=== PATIENT | male | born 1975 | race Two or more races ===

== ENCOUNTER 2017-12-25 01:53 | Emergency (ER) | payer MEDICAID ==
[~2017-12-25] VITALS: Ht 175.3 cm; Wt 142.9 kg
[2017-12-25 01:53] VITALS: BP 175/125
== END 2017-12-25 03:21 | disposition left against medical advice (07) ==
LOC: ER 01:53
DX: F41.9 Anxiety disorder, unspecified (principal); Z53.21 Procedure and treatment not carried out due to patient leaving prior to being seen by health care provider

== ENCOUNTER 2018-07-06 16:00 | Emergency (ER) | payer MEDICAID ==
[~2018-07-06] VITALS: Ht 175.3 cm; Wt 145.1 kg
[2018-07-06] MEDS ORDERED: SODIUM CHLORIDE 0.9% 1,000 ML IV ONE ×2 (16:19→17:00)
[2018-07-06] MEDS ORDERED: SODIUM CHLORIDE 0.9% 1,000 ML IVB ONE (16:19)
[2018-07-06 16:52] LABS: Basophils # (auto) 0 uL; Basophils % (auto) 0.5 % (0.0-2.0); Eosinophils # (auto) 0.2 uL; Eosinophils % (auto) 2.3 % (0.0-7.0); Hematocrit 48.8 % (41.0-53.0); Lymphocytes # (auto) 1.4 uL; Lymphocytes % (auto) 17.6 % (10.0-50.0); Mean Corpuscular Hemoglobin 29.1 pg (28.0-32.0); Mean Corpuscular Hgb Conc. 32.8 g/dL (32.0-36.0); Mean Corpuscular Volume 88.6 fL (80.0-100.0); Monocytes # (auto) 0.6 uL; Monocytes % (auto) 7.9 % (0.0-12.0); Neutrophils # (auto) 5.5 uL; Neutrophils % (auto) 71.7 % (37.0-80.0); Nucleated Red Blood Cells % 0.1 %; Platelet Count (auto) 249 10^3/uL (140-450); Red Blood Cells 5.51 10^6/uL (4.5-5.90); White Blood Cell 7.7 10^3/uL (4.4-10.8)
[2018-07-06] MEDS ORDERED: FUROSEMIDE 20 MG/2 ML VIAL IV ONE (17:00)
[2018-07-06] MEDS ORDERED: cefTRIAXone 1GM/50ML D5W 50 ML IV ONE (17:00)
[2018-07-06] MEDS ORDERED: SPIRONOLACTONE 25 MG TAB PO ONE (17:00)
[2018-07-06 17:09] LABS: Albumin 3.4 g/dL (3.4-5.0); Calcium 8.6 mg/dL (8.5-10.1); Potassium 3.9 mmol/L (3.5-5.1)
[2018-07-06 17:11] LABS: BUN/Creatinine Ratio 10.5
[2018-07-06 17:14] LABS: Bilirubin, Total 1.1 mg/dL (0.2-1.0); Total Protein 7.9 g/dL (6.4-8.2)
[2018-07-06 18:36] LABS: Urine Bacteria NONE SEEN /hpf (None Seen); Urine Blood 2+ /uL (Negative); Urine Mucus FEW (None Seen); Urine WBC <1 /hpf (0 - 3)
[2018-07-06 18:58] VITALS: BP 127/85
== END 2018-07-06 18:58 | disposition home or self-care (01) ==
LOC: ER 16:00
DX: J18.9 Pneumonia, unspecified organism (principal); E66.9 Obesity, unspecified; I87.8 Other specified disorders of veins; Z68.42 Body mass index [BMI] 45.0-49.9, adult
CPT/HCPCS: 36415; 71045; 80053; 81001; 83735; 83880; 84443; 85025; 87040; 87804; 93005; 94761; 96365; 96375; 99284; J0696; J1940; J7030

== ENCOUNTER 2019-09-06 01:00 | Inpatient (IN) | payer MEDICAID ==
[~2019-09-06] VITALS: Ht 172.7 cm; Wt 113.4 kg
[2019-09-06] MEDS ORDERED: ACETAMINOPHEN 325 MG TAB PO ONE (01:30)
[2019-09-06] MEDS ORDERED: ONDANSETRON HCL 4 MG/2 ML VIAL IV ONE ×2 (01:30→03:30)
[2019-09-06] MEDS ORDERED: DEXTROSE 10% 1,000 ML IV ONE ×2 (02:00→06:00)
[2019-09-06] MEDS ORDERED: DEXTROSE (50%) 50ML SYRG IV ONE ×5 (02:15→12:23)
[2019-09-06] MEDS ORDERED: DEXTROSE 50% SYRINGE 50 ML IV ONE ×2 (03:00→12:21)
[2019-09-06] MEDS ORDERED: SUCCINYLCHOLINE CHLORIDE 20 MG/ML 10ML VIAL IV ONE ×2 (03:10→03:15)
[2019-09-06] MEDS ORDERED: ETOMIDATE (2MG/ML) 20ML VIAL IV ONE ×2 (03:10→03:15)
[2019-09-06] MEDS ORDERED: PROPOFOL 100 ML IV ONE (03:11)
[2019-09-06] MEDS ORDERED: NOREPINEPHRINE 8 MG/250ML KIT 250 ML IV SCH (03:12)
[2019-09-06] MEDS ORDERED: ONDANSETRON HCL 4 MG/2 ML VIAL ONE (03:17)
[2019-09-06] MEDS ORDERED: MIDAZOLAM HCL 5 MG/ML-1ML VIAL ONE (03:20)
[2019-09-06] MEDS: PROPOFOL 100 ML IV SCH ×2 (03:27→09:00)
[2019-09-06] MEDS ORDERED: MIDAZOLAM HCL 5 MG/ML-1ML VIAL IV ONE (03:30)
[2019-09-06] MEDS ORDERED: VANCOMYCIN 1GM/250ML 250 ML IV ONE (03:45)
[2019-09-06] MEDS ORDERED: PIPERACILLIN-TAZOB 3.375GM 100 ML IV ONE (03:45)
[2019-09-06 03:59] LABS: Hematocrit 49.2 % (41.0-53.0); Hemoglobin 15.7 g/dL (13.5-17.5); Mean Corpuscular Hemoglobin 24.8 pg (28.0-32.0); Mean Corpuscular Volume 77.6 fL (80.0-100.0); Platelet Count (auto) 262 10^3/uL (140-450); Red Blood Cells 6.34 10^6/uL (4.5-5.90); White Blood Cell 14.6 10^3/uL (4.4-10.8)
[2019-09-06 04:06] LABS: Red Cell Distribution Width 20.1 % (11.8-14.3)
[2019-09-06 04:19] LABS: Albumin 2.9 g/dL (3.4-5.0); Calcium 8.2 mg/dL (8.5-10.1); Magnesium 1.9 mg/dL (1.6-2.6); Potassium 4.3 mmol/L (3.5-5.1)
[2019-09-06 04:20] LABS: INR 2.73 (0.9-1.15); Lactic Acid w/Reflex 6.2 mmol/L (0.4-2.0); Partial Thromboplastin Time 27.6 sec (23.64-32.05)
[2019-09-06 04:24] LABS: Bilirubin, Total 7.3 mg/dL (0.2-1.0); Total Protein 7.9 g/dL (6.4-8.2)
[2019-09-06 05:03] LABS: Basophils % (manual) 0 (0.0-2.0); Blast Cells 0; Eosinophils % (manual) 0 (0-7); Metamyelocytes % 0; Myelocytes % 0; Promyelocytes % 0; Reactive Lymphocytes 0
[2019-09-06 05:24] LABS: CRP High Sensitivity 4.55 mg/dL (< 0.3)
[2019-09-06 05:39] LABS: Urine Bacteria MANY /hpf (None Seen); Urine Blood Negative /uL (Negative); Urine Hyaline Cast MANY /lpf (0 - 2); Urine Mucus FEW (None Seen); Urine Specific Gravity 1.021 (1.001-1.035); Urine WBC 9 /hpf (0 - 3)
[2019-09-06] MEDS ORDERED: DEXTROSE 50% SYRINGE 100 ML IV ONE (05:42)
[2019-09-06] MEDS ORDERED: SODIUM CHLORIDE 0.9% 2,000 ML IV ONE (05:45)
[2019-09-06 06:50] VITALS: BP 122/71
[2019-09-06 06:55] LABS: Band Neutrophils % (manual) 5; Lymphocytes % (manual) 9 (10.0-50.0); Monocytes % (manual) 4 (0-12)
[2019-09-06] MEDS ORDERED: PHENYLEPHRINE IV 250 ML IV ONE (07:30)
[2019-09-06 09:05] VITALS: BP 179/70
--- NOTE | 2019-09-06 09:32 | NUR ---
BARIATRIC AIR BED: [facility] Bariatric Bed ordered at [facility]. ETA 09/06/19 @ 1530. Reference #[id number]. Please call [facility] at if needed to follow up.
[2019-09-06] MEDS ORDERED: FAMOTIDINE 20 MG TAB PO SCH (10:00)
[2019-09-06] MEDS ORDERED: ACETAMINOPHEN 325 MG TAB PO PRN (10:00)
[2019-09-06] MEDS ORDERED: DEXTROSE (50%) 50ML SYRG IV PRN (10:00)
[2019-09-06] MEDS ORDERED: ONDANSETRON HCL 4 MG/2 ML VIAL IV PRN (10:00)
[2019-09-06] MEDS ORDERED: DEXTROSE 10% 1,000 ML IV SCH (10:00)
[2019-09-06] MEDS ORDERED: NITROGLYCERIN 0.4 MG SL TAB SL PRN (10:00)
[2019-09-06] MEDS ORDERED: MORPHINE SULF INJ 2 MG/ML SYRINGE 1ML IV PRN (10:00)
[2019-09-06] MEDS ORDERED: DOCUSATE SOD 100 MG CAP PO PRN (10:00)
[2019-09-06] MEDS ORDERED: ENOXAPARIN SOD 30 MG/0.3 ML SYRINGE SC SCH (10:00)
[2019-09-06] MEDS ORDERED: ACCU-CHEK COMFORT CURVE STRIP VI SCH (10:00)
[2019-09-06 11:01] VITALS: BP 179/70
[2019-09-06] MEDS ORDERED: SODIUM BICARBONATE 8.4% INJ 50ML SYRINGE ONE (11:49)
[2019-09-06] MEDS ORDERED: InsuLIN REG 1unit/0.01ml Soln (100units/ml) SC SCH (12:00)
[2019-09-06 12:01] VITALS: BP 94/76
[2019-09-06] MEDS ORDERED: EPINEPHrine HCL 1 MG/10 ML SYRG ONE (12:21)
[2019-09-06] MEDS ORDERED: EPINEPHrine HCL 1 MG/10 ML SYRG IV ONE (12:23)
[2019-09-06] MEDS ORDERED: MAGNESIUM SULF 50% 40 MEQ/10 ML VL IV ONE (12:23)
[2019-09-06] MEDS ORDERED: CALCIUM CHLOR(10%) 100MG/ML 10ML SYRINGE IV ONE (12:23)
[2019-09-06] MEDS ORDERED: SODIUM BICARBONATE 8.4% INJ 50ML SYRINGE IV ONE (12:23)
[2019-09-06 12:46] LABS: Calcium 7.9 mg/dL (8.5-10.1); Potassium 4.5 mmol/L (3.5-5.1)
[2019-09-06 12:51] LABS: BUN/Creatinine Ratio 10.5
[2019-09-06] MEDS ORDERED: PIPERACILLIN-TAZOB 2.25GM 50 ML IV SCH (14:00)
== END 2019-09-06 12:24 | disposition expired | DRG 133 ==
LOC: EDBD 01:00 → ER 01:02 → TELE 01:03
PROVIDERS: ADMIT Internal Medicine; ATTEND Internal Medicine
PROC: 5A12012 Performance of Cardiac Output, Single, Manual (ICD-10-PCS; principal; 2019-09-06)
PROC: 5A1935Z Respiratory Ventilation, Less than 24 Consecutive Hours (ICD-10-PCS; 2019-09-06)
PROC: 0BH17EZ Insertion of Endotracheal Airway into Trachea, Via Natural or Artificial Opening (ICD-10-PCS; 2019-09-06)
DX: J96.01 Acute respiratory failure with hypoxia (principal); A41.9 Sepsis, unspecified organism; E11.649 Type 2 diabetes mellitus with hypoglycemia without coma; F15.10 Other stimulant abuse, uncomplicated; F41.9 Anxiety disorder, unspecified; I11.0 Hypertensive heart disease with heart failure; I50.9 Heart failure, unspecified; N17.0 Acute kidney failure with tubular necrosis; N39.0 Urinary tract infection, site not specified; Z20.828 Contact with and (suspected) exposure to other viral communicable diseases; T38.3X5A Adverse effect of insulin and oral hypoglycemic [antidiabetic] drugs, initial encounter; Y92.89 Other specified places as the place of occurrence of the external cause
CPT/HCPCS: 31500; 36415; 36600; 71045; 80048; 80053; 81001; 82550; 82728; 82805; 82962; 83605; 83615; 83735; 83880; 84443; 84484; 85007; 85025; 85027; 85379; 85610; 85730; 86141; 87040; 87070; 87205; 87804; 87880; 92950; 93005; 93306; 94002; G0378; J0330; J2250; J2405; J2543; J2704